=== PATIENT | female | born 1990 | race Caucasian/White ===

== ENCOUNTER → 2017-01-20 | Outpatient (CLI) | payer OTHER | LOC: FIMAGING 14:35 | PROVIDERS: ATTEND Family Medicine | DX: N63 Unspecified lump in breast (principal) ==

== ENCOUNTER 2017-02-06 19:14 | Emergency (ER) | payer OTHER ==
[2017-02-06 19:20] VITALS: TEMP 98.8
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
[2017-02-06] MEDS ORDERED: CEPHALEXIN 500 MG CAP PO ONE (20:31)
[2017-02-06 20:57] VITALS: BP 124/77; PULSE 58; RESP 14; O2SAT 98
== END 2017-02-06 20:53 | disposition home or self-care (01) ==
PROC: 0HQDXZZ Repair Right Lower Arm Skin, External Approach (ICD-10-PCS; principal; 2017-02-06)
DX: S51.012A Laceration without foreign body of left elbow, initial encounter (principal); V18.4XXA Pedal cycle driver injured in noncollision transport accident in traffic accident, initial encounter; Y92.410 Unspecified street and highway as the place of occurrence of the external cause; Y99.8 Other external cause status; Y93.55 Activity, bike riding